=== PATIENT | female | born 1945 | race Caucasian/White ===

== ENCOUNTER 2016-10-28 06:26 | Day surgery (SDC) | payer MEDICARE ==
[~2016-10-28 06:26] MED LIST: BUPIVACAINE HCL 0.75% INJ/PF (7.5 MG/1 ML) 10 ML SDV OD PRN; KETOROLAC TROMETHAMINE 0.45% 4 DROP/0.4 ML DROPERETTE OD PRN; LIDOCAINE 4% INJ/PF (40 MG/ML) 5 ML AMPUL OD PRN
[2016-10-28] MEDS: TROPICAMIDE 1% OPH SOLN 3 ML OD PRN ×3 (06:47→07:10)
[2016-10-28] MEDS: LIDOCAINE 3.5% OPH GEL/PF 1 ML/TUBE OD PRN ×2 (06:48→07:13)
[2016-10-28] MEDS: CYCLOPENTOLATE 0.2%/PHENYLEPHRINE 1% OPH SOLN 2 ML OD PRN ×3 (06:48→07:11)
[2016-10-28] MEDS: BESIFLOXACIN HCL 0.6% OPH SUSP 5 ML BOTTLE OD PRN ×3 (06:49→08:02)
[2016-10-28] MEDS ORDERED: MIDAZOLAM 2 MG/2 ML INJ ONE (07:01)
[2016-10-28] MEDS ORDERED: CHONDR SU A NA/HYALUR INTRAOC KIT (SURGICARE) ONE (07:10)
[2016-10-28] MEDS ORDERED: PHENYLEPHRINE/KETOROLAC 1%-0.3% 4 ML VIAL ONE (07:10)
--- NOTE | 2016-10-28 08:18 | [facility] DISCHARGE SUMMARY E ---
[facility] Discharge Summary NAME: NASRIN MACK AGE: 71Y ADMITTED: 10/28/2016 DISCHARGED: 10/28/2016 PREOPERATIVE DIAGNOSIS: Cataract, right eye. POSTOPERATIVE DIAGNOSIS: Cataract, right eye. HOSPITAL COURSE: The patient is a 71-year-old who underwent uneventful cataract extraction with intraocular lens implant, right eye, on 10/28/2016. She will be discharged to home. She was instructed to resume preoperative medications, take Tylenol as needed for discomfort, to keep her eye shielded, to use Besivance, Durezol, and Ilevro at 3 p.m. and 8 p.m., and to followup in my in my office 1 day. DICTATING PHYSICIAN: DANY COWAN M.D. 1211M [id number] PHY#: [id number] ID: [id number] JOB#: [id number] ACCT: [id number] cc:DANY COWAN M.D. >
--- NOTE | 2016-10-28 08:18 | [facility] OPERATIVE REPORT E ---
[facility] Operative Report NAME: NASRIN MACK AGE: 71Y DATE OF SURGERY: 10/28/2016 ROOM: PREOPERATIVE DIAGNOSIS: Cataract, right eye. POSTOPERATIVE DIAGNOSIS: Cataract, right eye. PROCEDURE PERFORMED: Phacoemulsification with posterior chamber intraocular lens, right eye. SURGEON: Mili Cowan MD ANESTHESIA: Topical with MAC. INDICATIONS FOR SURGERY: Difficulty reading road signs and small print. Best corrected visual acuity 20/60. PROCEDURE: The patient was brought to the operating room and placed on the operative table. Following tetracaine drops, topical anesthesia was administered. This consisted of instrument wipe pledgets soaked in a solution of 4% Xylocaine mixed with 0.75% Marcaine in a 1:2 ratio. A 2 x 1 cm pledget was placed in the superior fornix. A 1 x 1 cm pledget was placed in the inferior fornix. The eye was patched shut for 5 minutes. The patch was removed. The eye was sterilely prepped and draped in the usual manner. Lid speculum was placed in the eye. The pledgets were removed. 4-0 black silk sutures were placed around the superior and the inferior rectus muscles to be used as traction. A conjunctival peritomy was made at the 10 o'clock position. Hemostasis was obtained with bipolar cautery. A posterior limbal groove was created using a crescent knife and dissected anteriorly towards the cornea. A sharp point blade was used to create a paracentesis site at the 2 o'clock position. A 2.4 mm keratome was used to enter the anterior chamber through the groove. Viscoelastic was injected into the anterior chamber. An anterior capsulotomy was performed using Utrata forceps in a capsulorrhexis fashion. Hydrodissection and hydrodelineation were performed. Phacoemulsification was performed in inyoit-ztb-gaphjen technique. Total phaco time 13.15 CDE. Following this, the I/A unit was used to remove residual cortex. Viscoelastic was injected into the capsular bag. Intraocular lens model SN60WF, 18.0 diopters, serial number [id number] was placed in the capsular bag. The I/A unit was used to remove residual viscoelastic. The wound was seen to be watertight under high and low pressure, and no sutures were placed. The intraocular lens was well centered. The pressure was adjusted in the eye to normal pressure. The 4-0 black silk sutures and lid speculum were removed. The eye was shielded after Besivance drops were placed. The patient tolerated the procedure well and was sent to the recovery room in good condition. DICTATING PHYSICIAN: MILI COWAN M.D. 1211M [id number] PHY#: [id number] ID: [id number] JOB#: [id number] ACCT: [id number] cc:MILI COWAN M.D. >
[2016-10-29] MEDS ORDERED: ONDANSETRON HCL INJ/PF 4 MG/2 ML SDV ONE (07:10)
[2016-10-29] MEDS ORDERED: FENTANYL CITRATE INJ/PF 100 MCG/2 ML AMPUL ONE (07:10)
[2016-10-29] MEDS ORDERED: MIDAZOLAM 2 MG/2 ML INJ ONE (07:10)
== END 2016-10-28 08:51 | disposition home or self-care (01) ==
LOC: SC 06:26
PROVIDERS: ATTEND Ophthalmology
PROC: 08RJ3JZ Replacement of Right Lens with Synthetic Substitute, Percutaneous Approach (ICD-10-PCS; principal; 2016-10-28 07:30)
DX: H25.89 Other age-related cataract (principal); M19.90 Unspecified osteoarthritis, unspecified site; K21.9 Gastro-esophageal reflux disease without esophagitis; I10 Essential (primary) hypertension; Z87.891 Personal history of nicotine dependence; Z88.5 Allergy status to narcotic agent; Z79.82 Long term (current) use of aspirin; Z79.51 Long term (current) use of inhaled steroids
CPT/HCPCS: 66984; V2632; J2250; J3490 ×3; A9270 ×2; C9447; 142

== ENCOUNTER 2016-11-18 10:10 | Day surgery (SDC) | payer MEDICARE ==
[~2016-11-18 10:10] MED LIST changes: -BUPIVACAINE HCL 0.75% INJ/PF (7.5 MG/1 ML) 10 ML SDV OD PRN; +BUPIVACAINE HCL 0.75% INJ/PF (7.5 MG/1 ML) 10 ML SDV OS PRN; +CHONDR SU A NA/HYALUR INTRAOC KIT (SURGICARE) ONE; -KETOROLAC TROMETHAMINE 0.45% 4 DROP/0.4 ML DROPERETTE OD PRN; +KETOROLAC TROMETHAMINE 0.45% 4 DROP/0.4 ML DROPERETTE OS PRN; -LIDOCAINE 4% INJ/PF (40 MG/ML) 5 ML AMPUL OD PRN; +LIDOCAINE 4% INJ/PF (40 MG/ML) 5 ML AMPUL OS PRN; +PHENYLEPHRINE/KETOROLAC 1%-0.3% 4 ML VIAL ONE
[2016-11-18] MEDS: TETRACAINE HCL 0.5% OPH SOLN 0.6 ML DROPERETTE OS PRN ×2 (10:24→10:46)
[2016-11-18] MEDS: CYCLOPENTOLATE 0.2%/PHENYLEPHRINE 1% OPH SOLN 2 ML OS PRN ×3 (10:25→10:45)
[2016-11-18] MEDS: BESIFLOXACIN HCL 0.6% OPH SUSP 5 ML BOTTLE OS PRN ×3 (10:25→11:16)
[2016-11-18] MEDS: TROPICAMIDE 1% OPH SOLN 3 ML OS PRN ×3 (10:25→10:45)
[2016-11-18] MEDS ORDERED: MIDAZOLAM 2 MG/2 ML INJ ONE (10:36)
[2016-11-18] MEDS ORDERED: FENTANYL CITRATE INJ/PF 100 MCG/2 ML AMPUL ONE (10:36)
--- NOTE | 2016-11-18 11:32 | [facility] OPERATIVE REPORT E ---
[facility] Operative Report NAME: NASRIN MACK AGE: 71Y DATE OF SURGERY: 11/18/2016 ROOM: PREOPERATIVE DIAGNOSIS: Cataract, left eye. POSTOPERATIVE DIAGNOSIS: Cataract, left eye. PROCEDURE PERFORMED: Phacoemulsification with posterior chamber intraocular lens, left eye. SURGEON: Mili Cowan MD ANESTHESIA: Topical with MAC. INDICATIONS FOR SURGERY: Difficulty reading and driving. Best corrected visual acuity 20/40. PROCEDURE: The patient was brought to the operating room and placed on the operative table. Following tetracaine drops, topical anesthesia was administered. This consisted of instrument wipe pledgets soaked in a solution of 4% Xylocaine mixed with 0.75% Marcaine in a 1:2 ratio. A 2 x 1 cm pledget was placed in the superior fornix. A 1 x 1 cm pledget was placed in the inferior fornix. The eye was patched shut for 5 minutes. The patch was removed. The eye was sterilely prepped and draped in the usual manner. Lid speculum was placed in the eye. The pledgets were removed. 4-0 black silk sutures were placed around the superior and the inferior rectus muscles to be used as traction. A conjunctival peritomy was made at the 10 o'clock position. Hemostasis was obtained with bipolar cautery. A posterior limbal groove was created using a crescent knife and dissected anteriorly towards the cornea. A sharp point blade was used to create a paracentesis site at the 2 o'clock position. A 2.4 mm keratome was used to enter the anterior chamber through the groove. Viscoelastic was injected into the anterior chamber. An anterior capsulotomy was performed using Utrata forceps in a capsulorrhexis fashion. Hydrodissection and hydrodelineation were performed. Phacoemulsification was performed in neousd-frx-[id number] technique. A total of 1 minute 5 seconds phaco time was used. Following this, the I/A unit was used to remove residual cortex. Viscoelastic was injected into the capsular bag. Intraocular lens model SN60WF, 17.0 diopters, serial number [id number] was placed in the capsular bag. The I/A unit was used to remove residual viscoelastic. The wound was seen to be watertight under high and low pressure, and no sutures were placed. The intraocular lens was well centered. The pressure was adjusted in the eye to normal pressure. The 4-0 black silk sutures and lid speculum were removed. The eye was shielded after Besivance drops were placed. The patient tolerated the procedure well and was sent to the recovery room in good condition. DICTATING PHYSICIAN: MILI COWAN M.D. 1211M [id number] PHY#: [id number] ID: [id number] JOB#: [id number] ACCT: [id number] cc:MILI COWAN M.D. >
--- NOTE | 2016-11-18 11:36 | [facility] DISCHARGE SUMMARY E ---
[facility] Discharge Summary NAME: NASRIN MACK AGE: 71Y ADMITTED: 11/18/2016 DISCHARGED: 11/18/2016 PREOPERATIVE DIAGNOSIS: Cataract, left eye. POSTOPERATIVE DIAGNOSIS: Cataract, left eye. HOSPITAL COURSE: The patient is a 71-year-old lady who underwent uneventful cataract extraction with intraocular lens implant, left eye, on 11/18/2016. She will be discharged to home. She was instructed to resume preoperative medications, take Tylenol as needed for discomfort, to keep her eye shielded, to use Besivance, Durezol, and Ilevro at 3 p.m. and 8 p.m., and to followup in my office in 1 day. DICTATING PHYSICIAN: DANY COWAN M.D. 1211M [id number] PHY#: [id number] ID: [id number] JOB#: [id number] ACCT: [id number] cc:DANY COWAN M.D. >
[2016-11-18] MEDS ORDERED: ACETAMINOPHEN 325 MG TABLET ONE (12:03)
== END 2016-11-18 12:02 | disposition home or self-care (01) ==
LOC: SC 10:10
PROVIDERS: ATTEND Ophthalmology
PROC: 08RK3JZ Replacement of Left Lens with Synthetic Substitute, Percutaneous Approach (ICD-10-PCS; principal; 2016-11-18 11:00)
DX: H25.812 Combined forms of age-related cataract, left eye (principal); Z96.1 Presence of intraocular lens; J45.909 Unspecified asthma, uncomplicated; Z79.51 Long term (current) use of inhaled steroids
CPT/HCPCS: 66984; V2632; A9270 ×2; J2250; J3490 ×3; J3010; C9447; 142

== ENCOUNTER 2017-07-11 09:39 | Emergency (ER) | payer MEDICARE ==
--- NOTE | 2017-07-11 10:24 | ER Document Report ---
HPI - HPI Patient complains to provider of: Right arm injury Onset: This morning - 930 Onset/Duration: Sudden Pain Level: 5 Context: 72-year-old normally healthy female fell while trying to refill a bird feeder at home this morning at 930. She has an abrasion to her right elbow and right wrist. She has right trapezius muscle soreness and proximal humerus upper arm tenderness and swelling. Associated Symptoms: None Exacerbated by: Movement Relieved by: Denies Similar symptoms previously: No Recently seen / treated by doctor: No - ROS ROS below otherwise negative: Yes Systems Reviewed and Negative: Yes All other systems reviewed and negative Past Medical History - General Information source: Patient - Social History Smoking Status: Never Smoker Frequency of alcohol use: None Drug Abuse: None Lives with: Family Family History: Reviewed & Not Pertinent - Medical History Medical History: Negative Surgical Hx: Negative Vertical Provider Document - CONSTITUTIONAL Agree With Documented VS: Yes Exam Limitations: No Limitations General Appearance: No Apparent Distress - INFECTION CONTROL TRAVEL OUTSIDE OF THE [place] IN LAST 30 DAYS: No - HEENT HEENT: Atraumatic, Normocephalic - NECK Neck: Supple Notes: tender rught trapezius muscle - RESPIRATORY Respiratory: Breath Sounds Normal, No Respiratory Distress - CARDIOVASCULAR Cardiovascular: Regular Rate, Regular Rhythm - MUSCULOSKELETAL/EXTREMETIES Musculoskeletal/Extremeties: Tender - proximal humerus with swelling, Eccymosis Notes: Nontender clavicle - NEURO Level of Consciousness: Awake, Alert Motor/Sensory: No Motor Deficit, No Sensory Deficit Notes: 2+ radial pulse, abrasions to the volar radial right wrist and olecranon, non tender elbow or forearm - DERM Notes: Abrasions right olecranon and right volar wrist Course - Re-evaluation Re-evalutation: 07/11/17 10:42 X-rays are still pending by radiologist. 07/11/17 11:01 Proximal right humerus fracture per radiologist. - Vital Signs Vital signs: Temp Pulse Resp BP Pulse Ox 97.8 F 66 16 166/96 H 100 07/11/17 09:54 07/11/17 09:54 07/11/17 09:54 07/11/17 09:54 07/11/17 09:54 Discharge - Discharge Clinical Impression: Nondisplaced right humeral head fracture, Abrasions Trapezius muscle strain Qualifiers: Encounter type: initial encounter Laterality: right Qualified Code(s): S46.811A - Strain of other muscles, fascia and tendons at shoulder and upper arm level, right arm, initial encounter Condition: Good Disposition: HOME, SELF-CARE Instructions: Oral Narcotic Medication ([facility]), Fracture Proximal Humerus, Temporary Sling ([facility]), Muscle Relaxers ([facility]), Muscle Strain ([facility]), Abrasions ( [facility]) Additional Instructions: sling for comfort pain medicaton muscle relaxer ice today then heat multivitamin daily call and schedule appointment with orthopedist on Thursday Watch for infection on your abrasion wash well and use bacitracin You have been given a tetanus shot with pertussis Prescriptions: Hydrocodone Bit/Acetaminophen [Hydrocodon-Acetaminophen 5-325] 1 - 2 each PO Q4HP PRN #20 tablet PRN Reason: Cyclobenzaprine HCl [Flexeril 10 Mg Tablet] 10 mg PO TIDP PRN #20 tablet PRN Reason: Referrals: MARCO CLINE MD [ACTIVE STAFF] - 07/14/17
[2017-07-11] MEDS ORDERED: HYDROCODONE/ACETAMINOPHEN 5-325 MG TABLET PO ONE (10:32)
[2017-07-11] MEDS ORDERED: ONDANSETRON 4 MG TAB.RAPDIS PO ONE (10:32)
--- NOTE | 2017-07-11 10:55 | RADIOLOGY REPORT (SQ) ---
EXAM DESCRIPTION: SHOULDER RIGHT 2 OR MORE VIEWS COMPLETED DATE/TIME: 07/11/2017 10:23 am REASON FOR STUDY: Fall, RUE Pain COMPARISON: None. NUMBER OF VIEWS: 2 views. TECHNIQUE: AP and Y view images acquired of the right shoulder. LIMITATIONS: None. FINDINGS: There is evidence of a fracture of the proximal right humerus with fracture of the greater tuberosity as well. IMPRESSION: Acute fracture proximal right humerus. TECHNICAL DOCUMENTATION: JOB ID: [id number] [id number] 2010 [employer]- All Rights Reserved Reading location - IP/workstation name: [email or web address]
--- NOTE | 2017-07-11 10:58 | RADIOLOGY REPORT (SQ) ---
EXAM DESCRIPTION: WRIST RIGHT 3 VIEWS COMPLETED DATE/TIME: 07/11/2017 10:23 am REASON FOR STUDY: Fall, RUE Pain COMPARISON: None. NUMBER OF VIEWS: Three views. TECHNIQUE: AP, lateral, and oblique radiographic images acquired of the right wrist. LIMITATIONS: None. FINDINGS: There is evidence of marked degenerative change at the 1st carpometacarpal joint and 1st D IP joint. Degenerative change at the 2nd carpometacarpal joint. Degenerative change at the radiouln ar joint. There is a bony density projected lateral to the base of the 1st metacarpal which could re present an old avulsion fracture. 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 Old avulsion fracture in this region not excluded. Minimal soft tissue swelling noted. . TECHNICAL DOCUMENTATION: JOB ID: [id number] [id number] 2010 [employer]- All Rights Reserved Reading location - IP/workstation name: [email or web address]
[2017-07-11] MEDS ORDERED: DIPH/PERTUSS(ACELL)/TETANUS VAC/PF 0.5 ML SYR (>=10YO) IM ONE (11:00)
--- NOTE | 2017-07-11 11:01 | RADIOLOGY REPORT (SQ) ---
EXAM DESCRIPTION: ELBOW RIGHT OVER 2 VIEWS COMPLETED DATE/TIME: 07/11/2017 10:23 am REASON FOR STUDY: Fall, RUE Pain COMPARISON: None. NUMBER OF VIEWS: 3 views. TECHNIQUE: AP, lateral, and oblique radiographic images acquired of the right elbow. LIMITATIONS: None. FINDINGS: No acute fracture or bony abnormality seen. IMPRESSION: Normal right elbow. TECHNICAL DOCUMENTATION: JOB ID: [id number] [id number] 2010 [employer]- All Rights Reserved Reading location - IP/workstation name: [email or web address]
[2017-07-11 11:31] VITALS: BP 151/65
== END 2017-07-11 11:31 | disposition home or self-care (01) ==
LOC: ER 09:39
DX: S42.291A Other displaced fracture of upper end of right humerus, initial encounter for closed fracture (principal); S42.251A Displaced fracture of greater tuberosity of right humerus, initial encounter for closed fracture; S29.012A Strain of muscle and tendon of back wall of thorax, initial encounter; S50.311A Abrasion of right elbow, initial encounter; S60.811A Abrasion of right wrist, initial encounter; W19.XXXA Unspecified fall, initial encounter; Y93.89 Activity, other specified; Y92.008 Other place in unspecified non-institutional (private) residence as the place of occurrence of the external cause
CPT/HCPCS: 99283; 73080; 73030; 73110; A9270 ×2; S0119